=== PATIENT | female | born 1980 | race Caucasian/White ===

== ENCOUNTER 2023-02-08 23:19 | Inpatient (IN) | payer OTHER, SELFPAY ==
--- OUTSIDE RECORDS SUMMARY | 2023-02-08 23:23 | XMS_ITS | Continuity of Care Document ---
Author Name Unknown Address [address] [place] [address] Phone [facility] Address [address] [place] [address] Phone Care Team Providers Care Financial Sales Consultant Name Role Phone Pcp-None, MD Garrido Primary Care Provider Sharan Hood NP [place] Attending Provider [phone] Chief Complaint and Reason for Visit Chief Complaint I25.10, F32.9 Social History Smoking Status Unknown if ever smoked Additional Data Assigned Sex Female Relevant Diagnostic Tests and/or Laboratory Data Laboratory Results Test Date/Time Result Interpretation Reference Range Result Comment Performing Site White Blood Count December 09, 2022 12:30pm 6.4 X10 3/uL 4.5-11.0 [facility] [id number] [address] [place] [address] [id number] Red Blood Count December 09, 2022 12:30pm 4.04 X10 6/uL 3.70-5.00 [facility] [id number] [address] [place] [address] 18619 Hemoglobin December 09, 2022 12:30pm 11.5 g/dl 11.0-16.0 [facility] [id number] [address] [place] [address] 66970 Hematocrit December 09, 2022 12:30pm 36.7 % 34.0-45.0 [facility] [id number] [address] [place] [address] 90040 Mean Corpuscular Volume December 09, 2022 12:30pm 90.8 fl 80.0-100.0 [facility] [id number] [address] [place] [address] 06138 Mean Corpuscular Hemoglobin December 09, 2022 12:30pm 28.5 pg 27.0-34.0 [facility] [id number] [address] [place] [address] 55062 Mean Corpuscular Hemoglobin Concent December 09, 2022 12:30pm 31.3 g/dl 31.0-36.0 [facility] [id number] [address] [place] [address] 03051 Red Cell Distribution Width December 09, 2022 12:30pm 13.2 % 11.5-15.0 [facility] [id number] [address] [place] [address] 38016 Platelet Count December 09, 2022 12:30pm 287 X10 3/uL 150-400 [facility] [id number] [address] [place] [address] 33826 Immature Granulocyte % (Auto) December 09, 2022 12:30pm 0.2 % [facility] [id number] [address] [place] [address] 89776 Neutrophils (%) (Auto) December 09, 2022 12:30pm 60.5 % [facility] [id number] [address] [place] [address] 70161 Lymphocytes (%) (Auto) December 09, 2022 12:30pm 24.2 % [facility] [id number] [address] [place] [address] 52617 Monocytes (%) (Auto) December 09, 2022 12:30pm 12.0 % [facility] [id number] [address] [place] [address] 25377 Eosinophils (%) (Auto) December 09, 2022 12:30pm 2.2 % [facility] [id number] [address] [place] [address] 65932 Basophils (%) (Auto) December 09, 2022 12:30pm 0.9 % [facility] [id number] [address] [place] [address] 84591 Immature Granulocyte # (Auto) December 09, 2022 12:30pm 0.01 X10 3/uL 0.00-0.09 [facility] [id number] [address] [place] [address] 07418 Neutrophils # (Auto) December 09, 2022 12:30pm 3.9 X10 3/uL 1.5-7.8 [facility] [id number] [address] [place] [address] 15875 Lymphocytes # (Auto) December 09, 2022 12:30pm 1.6 X10 3/uL 1.0-4.8 [facility] [id number] [address] [place] [address] 61782 Monocytes # (Auto) December 09, 2022 12:30pm 0.8 X10 3/uL 0.0-0.8 [facility] [id number] [address] [place] [address] 15632 Eosinophils # (Auto) December 09, 2022 12:30pm 0.1 X10 3/uL 0.0-0.5 [facility] [id number] [address] [place] [address] 40077 Basophils # (Auto) December 09, 2022 12:30pm 0.1 X10 3/uL 0.0-0.2 [facility] [id number] [address] [place] [address] 67007 Nucleated Red Blood Cells % December 09, 2022 12:30pm 0.0 /100 WBC 0.0-0.0 [facility] [id number] [address] [place] [address] 52343 Triglycerides Level December 09, 2022 12:30pm 89 mg/dL <150 <=150 mg/dL = Desirable [facility] [id number] [address] [place] [address] Cholesterol Level December 09, 2022 12:30pm 135 mg/dl <199 <200 mg/dL = Desirable [facility] [id number] [address] [place] [address] LDL Cholesterol, Calculated December 09, 2022 12:30pm 70 mg/dl <129 [facility] [id number] [address] [place] [address] HDL Cholesterol December 09, 2022 12:30pm 47 mg/dL >40 < 40 mg/dl: Low HDL-cholest nikolay(major risk factor for CHD)>/= 60 mg/dl: High HDL-cholest nikolay(negati ve risk factor for CHD)HDL-cho lesterol is affected by a number of factors, e.g., smoking, excercise, hormones, sex and age. [facility] [id number] [address] [place] [address] 87430 Cholesterol Ratio (LDL/HDL) December 09, 2022 12:30pm 1.5 LDL/HDL Interpretat ion:Ratio Men Women1/2 Average 1.00 1.47Average 3.55 3.222X Average 6.25 5.033X Average 7.99 6.14 [facility] [id number] [address] [place] [address] 74823 Cholesterol/HDL Ratio December 09, 2022 12:30pm 2.9 Cholesterol /HDL Interpretat ion: Ratio Men Women 1/2 Average 3.43 3.27 Average 4.97 4.44 2X Average 9.55 7.05 3X Average 23.39 11.04 [facility] [id number] [address] [place] [address] 55570 Thyroid Stimulating Hormone (Reflex December 09, 2022 12:30pm 1.95 uIU/mL 0.34-5.60 [facility] [id number] [address] [place] [address] 33318 Insurance Providers Guarantor Lindsay Wheatley Address [address] [place] [address] Contact Info. Home Phone: Payer Policy Id Coverage Id Subscriber's Name Subscriber Id Effective Date Expiration Date [facility] [id number] Lindsay Wheatley [id number] Encounters Encounter Location(s) Arrival/Admit Date Discharge/Depart Date Provider(s) Departed Referred [facility] - After Hours Blood Draws December 09, 2022 12:25pm December 09, 2022 12:26pm Livia Hood NP
--- NOTE | 2023-02-09 03:25 | PC.ADMIT ---
PT IS A 42 YEAR OLD, BELARUSIAN SPEAKING FEMALE ADMITTED TO [facility] FROM [facility] AFTER STATING THAT SHE FELT LIKE JUMPING OFF A BRIDGE AND ENDING IT . PT WAS ORDERED 5 MIN CHECKS WITH AN UNLOCKED BATHROOM PER SUPERVISOR PAINT ROLLER COVERS MD. PSYCH GROUP. VITAL SIGNS STABLE. LABS WNL. PT REPORTS BEING HOMELESS AND SLEEPING ON HER BOYFRIEND'S BROTHERS COUCH FOR THE PAST COUPLE WEEKS. PT REPORTS RECENT WEIGHT LOSS OF AN UNKNOWN AMOUNT DUE TO DECREASED APPETITE. PT HAS HAD DIFFICULTY SLEEPING. PT REPORTS NOT BEING A SMOKER AND DOES NOT NEED NICOTINE REPLACEMENT. NO REPORTED DRUG USE OR ALCOHOL USE. TOX SCREEN NEGATIVE EXCEPT FOR PRESCRIBED MEDICATIONS. NO SIGNS OF WITHDRAWAL. PT TAKES OPIATES FOR CHRONIC BACK PAIN. PT IS ALERT AND ORIENTEDX4. PRESENTS WITH GOOD INSIGHT AND SEEMS HOPEFUL FOR TREATMENT UPON ASSESSMENT. PT MADE GOOD EYE CONTACT AND WAS COOPERATIVE WITH RN. PT REQUESTED TO SIGN RELEASES AND DO SAFETY TOOL IN THE MORNING DUE TO BEING TOO TIRED FROM NIGHT TIME MEDICATIONS . PT AMBULATES INDEPENDENTLY; NO HX OF FALLS. NO ACUTE MEDICAL CONCERNS. PT DOES REPORT SLEEP APNEA BUT DOES NOT USE A CPAP AT HOME BECAUSE SHE NEVER WENT FOR THE SLEEP STUDY . PTS HOB IS ELEVATED. PT HAS VAGUE SI CURRENTLY WITH NO PLAN OR INTENT. PT FEELS SAFE ON THE UNIT BUT DOES NOT FEEL SHE COULD BE SAFE OUTSIDE OF THE HOSPITAL AT THIS TIME. PT REFUSED A FLU VACCINE. PT DENIES HI/AH/VH. DOES NOT APPEAR TO BE RESPONDING TO INTERNAL STIMULI. PTS ALLERGIES HAVE BEEN VERIFIED AND MED REC HAS BEEN COMPLETED BY RN. HOSPITALIST CONSULT ORDERED FOR OUTSIDE FACILITY ADMISSION. PT REPORTS MODERATE ANXIETY AND DEPRESSION.
[2023-02-09 07:00] VITALS: BMI 28.2
[2023-02-09 08:30] VITALS: BP 120/66; PULSE 70; RESP 18; TEMP 36.6; O2SAT 96
[2023-02-09] MEDS: Omeprazole 20 MG CAPSULE.DR PO ×2 (08:42→20:38)
[2023-02-09] MEDS: diazePAM 5 MG TABLET 10 MG PO ×2 (13:03→19:25)
[2023-02-09] MEDS: Acetaminophen 325 MG TABLET 650 MG PO (14:33)
[2023-02-09 16:24] VITALS: BP 93/52; PULSE 70; RESP 16; TEMP 37.1; O2SAT 97
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
--- NOTE | 2023-02-09 19:04 | HO.PM.IMCN ---
History of Present Illness Data of Consult Service Date: 02/09/23 Primary Care Provider: Unknown Physician HPI Reason for consult: Admission H&P Pt is a 42-year-old female with a PMH significant for?mild intermittent asthma, GERD, scoliosis, chronic back pain, depression, and bipolar disorder who is admitted to [facility] psychiatry unit for increasing depression since boyfriend has been incarcerated with SI with plan to jump from a local bridge. Medical consult for admission H&P. ?Patient states her asthma is well controlled with Ellipta, says she rarely uses her rescue inhaler. Patient's only medical complaint is of chronic lower back pain that she has been experiencing since earlier in the summer. Patient has been homeless since October 2022 and been sleeping on the back of a [employer]. Patient has scoliosis and has been experiencing significant back pain ever since. She carries a prescription from her primary care for chronic opioids for pain control. She has only been receiving acetaminophen while on the unit and still experiencing significant pain which she rates an 8/10. She request her home opioids be continued possible. The patient was has no acute medical complaints. Denies chest pain/pressure, palpitations. No shortness of breath. Denies fever, chills, nausea, vomiting, diarrhea. Labs reviewed, grossly unremarkable. Vital signs stable. UA from [facility] negative for UTI Review of Systems Review of Systems: Chronic lower back pain Patient was has no acute medical complaints [facility] Medical History PTSD (post-traumatic stress disorder) Bipolar depression Social History Household Members: None Household Members Other:: HOMELESS, SLEEPING ON BFS BROTHERS COUCH Housing: Homeless Housing Other:: SEARCHING FOR HOUSING Do you presently have visiting nurse or other home services: No Patient Tobacco Use Status: Never used Tobacco Smoked in Last 30 Days: No e-Cigarette/Vaping Use: Never Used Patient Interested in Nicotine Replacement: No Patient Given Instructions on How to Stop Smoking: No Second Hand Smoke Exposure: No Use of substances other than those prescribed or required for medical reasons: No Currently Displaying Signs/Symptoms of Drug Intoxication Withdrawal: No Any prior treatment program specific to substance use: No Have you been hit, kicked, punched, or otherwise hurt by someone within the past year? If so, by whom?: No Do you feel safe in your current relationship?: Yes Is there a partner from a previous relationship who is making you feel unsafe now?: No Are you made to feel afraid or neglected: No Advance Directives: No Advance Directives Information Provided: Yes Do you have thoughts of harming others: None Do you have a plan to hurt others: No Plan Recently lost weight without trying: Yes How much weight loss: 2-13 pounds Eating poorly because of decreased appetite: Yes Nutrition screen score: 4 Nutrition Risks: No Nutritional Risk Patient : No : No Poor oral hygiene: No Meds Allergies Allergy/AdvReac Type Severity Reaction Status Date / Time chlorpromazine Allergy Intermediate Unknown Verified 02/09/23 00:48 [From Thorazine] citalopram Allergy Intermediate Vomiting Verified 02/09/23 00:48 escitalopram [From Lexapro] Allergy Intermediate Unknown Verified 02/09/23 00:48 fluoxetine [From Prozac] Allergy Intermediate Nausea Verified 02/09/23 00:48 ibuprofen Allergy Intermediate jaw edema Unverified 02/10/23 11:33 lurasidone [From Latuda] Allergy Intermediate Swelling Verified 02/09/23 00:48 olanzapine Allergy Intermediate Unknown Verified 02/09/23 00:48 hydroxyzine [From Vistaril] Allergy Unknown Unknown Verified 02/09/23 00:48 sertraline [From Zoloft] Allergy Unknown Vomiting Verified 02/09/23 00:48 propranolol AdvReac Intermediate Anxiety Verified 02/09/23 00:48 Active Medications: Current Medications Acetaminophen (Acetaminophen 325 Mg Tablet) 650 mg PO Q6H PRN PRN Reason: Headache/Pain Mild Scale (1-3) Last Admin: 02/09/23 14:33 Dose: 650 mg Al Hydroxide/Mg Hydroxide (Magnesium Hydrox/Alum Hydrox 30 Ml Oral.Susp) 30 ml PO Q6H PRN PRN Reason: Heartburn/Nausea Albuterol Sulfate (Albuterol Sulfate 90 Mcg 8 Gm Inhaler) 2 puff INHALE 6XD PRN PRN Reason: Wheezing Bupropion HCl (Bupropion Hcl 75 Mg Tablet) 75 mg PO DAILY ARABELLA Diazepam (Diazepam 5 Mg Tablet) 10 mg PO QID PRN PRN Reason: Anxiety Last Admin: 02/09/23 13:03 Dose: 10 mg Docusate Sodium (Docusate Sodium 100 Mg Capsule) 100 mg PO BID PRN PRN Reason: Constipation Famotidine (Famotidine 20 Mg Tablet) 20 mg PO BID PRN PRN Reason: Gastric Reflux Magnesium Hydroxide (Milk Of Magnesia 30 Ml Oral.Susp) 30 ml PO DAILY PRN PRN Reason: Constipation Omeprazole (Omeprazole 20 Mg Capsule.Dr) 20 mg PO BID [facility] Last Admin: 02/09/23 08:42 Dose: 20 mg Senna (Sennosides 8.6 Mg Tablet) 8.6 mg PO DAILY PRN PRN Reason: Constipation Tiotropium Alpine (Tiotropium Alpine 2.5 Mcg Inhaler) 2 puff INHALE DAILY [facility] Last Admin: 02/09/23 10:23 Dose: 2 puff Home Medications Medication Instructions Recorded Confirmed Last Taken Type albuterol sulfate 90 mcg/actuation 2 puff inhalation 6XD PRN Wheezing 02/09/23 02/09/23 Unknown History aerosol inhaler diazepam 10 mg tablet 10 mg PO QID PRN Anxiety 02/09/23 02/09/23 Unknown History docusate sodium 100 mg capsule 100 mg PO BID PRN Constipation 02/09/23 02/09/23 Unknown History famotidine 20 mg tablet 20 mg PO BID PRN Gastric Reflux 02/09/23 02/09/23 Unknown History hydrocodone 7.5 mg-acetaminophen 1 tab PO BID PRN Pain 02/09/23 02/09/23 Unknown History 325 mg tablet morphine 30 mg tablet,extended 30 mg PO Q12H 02/09/23 02/09/23 Unknown History release omeprazole 20 mg tablet,delayed 20 mg PO BID 02/09/23 02/09/23 Unknown History release sennosides 8.6 mg tablet (senna) 8.6 mg PO DAILY PRN Constipation 02/09/23 02/09/23 Unknown History umeclidinium 62.5 mcg/actuation 1 inh inhalation DAILY 02/09/23 02/09/23 Unknown History blister powder for inhalation (Incruse Ellipta) Physical Exam Vital Signs and Narrative: Vital Signs: Last Vital Signs Temp 98.7 F 02/09/23 16:24 Pulse 70 02/09/23 16:24 Resp 16 02/09/23 16:24 BP 93/52 L 02/09/23 16:24 Pulse Ox 97 02/09/23 16:24 O2 Del Method Room Air 02/09/23 16:24 BMI result Body Mass Index 28.2 General: AOx3, no acute distress Resp: CTA bilaterally CVS: S1, S2, RRR GI: +BS, NT, no distention Back: Patient with scoliosis. Diffuse tenderness to low back, especially on left side. Skin: Warm, dry Neuro: Cranial nerves II-XII grossly intact bilaterally. Motor grossly intact bilaterally Extremities: No edema Psych: Appropriate affect Results Labs 02/10/23 07:53 Assessment and Plan (1) Routine history and physical examination of adult: Status: Acute Plan Pt is a 42-year-old female with a PMH significant for?mild intermittent asthma, GERD, scoliosis, chronic back pain, depression, and bipolar disorder who is admitted to [facility] psychiatry unit for increasing depression since boyfriend has been incarcerated with SI with plan to jump from a local bridge. Medical consult for admission H&P. Mood disorder Plan as per Psychiatry Chronic lower back pain Patient with scoliosis, states she has been experiencing lower back pain since earlier this summer after living in the back of a [employer] Has been prescribed Vicodin, morphine by PCP which she has not yet receiving on the unit Can continue patient's home opioids for pain management Mild intermittent asthma Well-controlled with current regimen Patient not in acute exacerbation Continue home inhalers GERD Continue PPI Thank you for allowing us to participate in the care of this patient. Signing off at this time. Please let us know if there are any acute complaints or questions. Time Spent With Patient Time: Total time managing care of this patient today ____ minutes.
--- NOTE | 2023-02-09 19:40 | PC.NURSE ---
Pt submitted a Three Day Notice on 02/09/2023 up on Monday02/14/2023.
--- NOTE | 2023-02-10 | ECG_ITS ---
Test Reason : qtc check Blood Pressure : / mmHG Vent. Rate : 075 BPM Atrial Rate : 075 BPM P-R Int : 168 ms QRS Dur : 072 ms QT Int : 364 ms P-R-T Axes : 036 136 033 degrees QTc Int : 406 ms Normal sinus rhythm Right axis deviation Abnormal ECG No previous ECGs available Referred By: Adelita Pool Electronically Signed By:TREVOR GERARDO
[2023-02-10] MEDS: diazePAM 5 MG TABLET 10 MG PO ×4 (04:26→20:01)
[2023-02-10] MEDS: Acetaminophen 325 MG TABLET 650 MG PO ×3 (04:26→20:02)
[2023-02-10 08:23] LABS: Estimated Average Glucose 97 mg/dL
[2023-02-10 08:39] LABS: Alanine Aminotransferase 12 U/L (0-31); Albumin Level 3.8 g/dL (3.5-5.0); Alkaline Phosphatase 55 U/L (39-117); Anion Gap 11 (12-20); Aspartate Amino Transferase 13 U/L (5-31); Bilirubin Total 0.3 mg/dL (0.0-1.0); Blood Urea Nitrogen 10 mg/dL (9-16); Calcium 9.8 mg/dL (8.4-10.2); Carbon Dioxide 27 mmol/L (22-29); Chloride 108 mmol/L (96-108); Cholesterol 134 mg/dL (<200); Creatinine Clr Calc Pharmacy 82.5; Estimated Glomerular Filt Rate > 60; Glucose Fasting 93 mg/dL (60-99); HDL Cholesterol 32 mg/dL (>40); Iron 39 mcg/dL (30-160); LDL Cholesterol Calculated 77 mg/dL (<100); Percent Iron Saturation 17 % (15-50); Potassium 4.1 mmol/L (3.3-5.1); Sodium 142 mmol/L (135-145); Total Iron Binding Capacity 234 mcg/dL (228-428); Total Protein 6.9 g/dL (6.5-8.0); Triglycerides 126 mg/dL (<150); Unsaturated Iron Binding 195 ug/dL
[2023-02-10 08:40] VITALS: BP 111/56; PULSE 72; RESP 18; TEMP 36.5; O2SAT 98
[2023-02-10] MEDS: Omeprazole 20 MG CAPSULE.DR PO ×2 (08:46→20:01)
[2023-02-10 09:07] LABS: Folate 6.5 ng/mL (> or = 4.0); Vitamin B12 508 pg/mL (200-900)
[2023-02-10] MEDS: oxyCODONE HCl Immed Release 5 MG TABLET PO ×2 (12:57→20:01)
--- NOTE | 2023-02-10 16:09 | MHC.CLN ---
NUTRITION DISCONTINUED ENSURE TID. RD AVAILABLE BY CONSULT NEEDED.
[2023-02-10 18:00] VITALS: BP 106/59; PULSE 90; RESP 17; TEMP 36.6; O2SAT 98
--- NOTE | 2023-02-10 19:21 | HO.PSYCHPN ---
Subjective Subjective Date of Service: 02/10/23 Reason For Visit: major depressive disorder Subjective Notes: Conditional Voluntary and 3 Day Healthcare Proxy: No Guardianship: No Medical Problems Affecting Mental Status: No Interim History: Reports feeling in pain, overwhelmed, so she signed a TDN Refused Wellbutrin-we discontinued this. Discussed having a hard time without her partner or being able to connect with him. Reviewed pain mgt with her pharmacy, discussed Remeron trial for sleep. Medication Compliance: Intermittent Side effects from medications: No Attending Groups: Intermittent Review of Systems Acute medical concerns: No Medical Review of Systems: unchanged Mental Status Exam Mental Status Exam Patient Appearance: Fatigued Patient Orientation: Person, Place, Time and Situation Level of Consciousness: Alert Patient Behavior: Talkative, Cooperative and Good Eye Contact Mood Description: Suspicious and Depressed Affect Description: Flat Patient Cognition Impaired: No Ability to Follow Directions: Good Speech Pattern: Spontaneous Speech Memory Description: Intact Hallucinations: None Delusions: Not Present Perceptual Disturbances: Depersonalization and Derealization Thought Process: Rumination Thought Content: positive for Circumstantial and positive for Suicidal Ideation (denies) Depressive Symptoms: Unhappiness, Thoughts of /Suicide (denies) and Low Self Esteem Judgement: Fair Diagnostics Vital Signs (24Hr): Vital Signs - 24 hr 02/10/23 08:40 Temperature 97.7 F Pulse Rate 72 Respiratory Rate 18 Blood Pressure 111/56 L Pulse Oximetry 98 Oxygen Delivery Method Room Air BMI result Body Mass Index 28.2 Labs 02/10/23 07:53 Labs: Laboratory Results - last 48 hr 02/10/23 07:53 Sodium 142 Potassium 4.1 Chloride 108 Carbon Dioxide 27 Anion Gap 11 L BUN 10 Creatinine 0.83 Estim Creat Clear Calc 82.5 Estimated GFR > 60 Fasting Glucose 93 Estimat Average Glucose 97 Hemoglobin A1c % 5.0 Calcium 9.8 Iron 39 TIBC 234 % Saturation 17 Unsat Iron Binding 195 Total Bilirubin 0.3 AST 13 ALT 12 Alkaline Phosphatase 55 Total Protein 6.9 Albumin 3.8 Triglycerides 126 Cholesterol 134 LDL Cholesterol, Calc 77 HDL Cholesterol 32 L Vitamin B12 508 Folate 6.5 TSH 1.20 Medications Medications Current Medications Acetaminophen (Acetaminophen 325 Mg Tablet) 650 mg PO Q6H PRN PRN Reason: Headache/Pain Mild Scale (1-3) Last Admin: 02/10/23 11:21 Dose: 650 mg Al Hydroxide/Mg Hydroxide (Magnesium Hydrox/Alum Hydrox 30 Ml Oral.Susp) 30 ml PO Q6H PRN PRN Reason: Heartburn/Nausea Albuterol Sulfate (Albuterol Sulfate 90 Mcg 8 Gm Inhaler) 2 puff INHALE 6XD PRN PRN Reason: Wheezing Diazepam (Diazepam 5 Mg Tablet) 10 mg PO QID PRN PRN Reason: Anxiety Last Admin: 02/10/23 17:26 Dose: 10 mg Docusate Sodium (Docusate Sodium 100 Mg Capsule) 100 mg PO BID PRN PRN Reason: Constipation Famotidine (Famotidine 20 Mg Tablet) 20 mg PO BID PRN PRN Reason: Gastric Reflux Magnesium Hydroxide (Milk Of Magnesia 30 Ml Oral.Susp) 30 ml PO DAILY PRN PRN Reason: Constipation Mirtazapine (Mirtazapine 7.5 Mg Tablet) 7.5 mg PO BEDTIME [facility] Omeprazole (Omeprazole 20 Mg Capsule.Dr) 20 mg PO BID [facility] Last Admin: 02/10/23 08:46 Dose: 20 mg Oxycodone HCl (Oxycodone Hcl Immed Release 5 Mg Tablet) 5 mg PO Q8H PRN PRN Reason: back pain Last Admin: 02/10/23 12:57 Dose: 5 mg Senna (Sennosides 8.6 Mg Tablet) 8.6 mg PO DAILY PRN PRN Reason: Constipation Tiotropium [place] (Tiotropium [place] 2.5 Mcg Inhaler) 2 puff INHALE DAILY [facility] Last Admin: 02/10/23 08:48 Dose: 2 puff Allergies Allergies Allergy/AdvReac Type Severity Reaction Status Date / Time chlorpromazine Allergy Intermediate Unknown Verified 02/09/23 00:48 [From Thorazine] citalopram Allergy Intermediate Vomiting Verified 02/09/23 00:48 escitalopram [From Lexapro] Allergy Intermediate Unknown Verified 02/09/23 00:48 fluoxetine [From Prozac] Allergy Intermediate Nausea Verified 02/09/23 00:48 ibuprofen Allergy Intermediate jaw edema Unverified 02/10/23 11:33 lurasidone [From Latuda] Allergy Intermediate Swelling Verified 02/09/23 00:48 olanzapine Allergy Intermediate Unknown Verified 02/09/23 00:48 hydroxyzine [From Vistaril] Allergy Unknown Unknown Verified 02/09/23 00:48 sertraline [From Zoloft] Allergy Unknown Vomiting Verified 02/09/23 00:48 propranolol AdvReac Intermediate Anxiety Verified 02/09/23 00:48 duloxetine [From Cymbalta] AdvReac Unknown Unknown Verified 02/10/23 12:38 Assessment & Plan Assessment & Plan (1) PTSD (post-traumatic stress disorder): Status: Acute Code(s): F43.10 - Post-traumatic stress disorder, unspecified Assessment and Plan: 02/10/23 Remeron 7.5 mg hs Oxycodone 5 mg q8h prn pain (uses at home) (2) Bipolar depression: Status: Acute Code(s): F31.9 - Bipolar disorder, unspecified Plan Pt is a 42-year-old female with a PMH significant for?mild intermittent asthma, GERD, scoliosis, chronic back pain, depression, and bipolar disorder who is admitted to [facility] unit for increasing depression since boyfriend has been incarcerated with [facility] with plan to jump from a local bridge. Medical consult for admission H&P. Mood disorder Plan as per Psychiatry Chronic lower back pain Patient with scoliosis, states she has been experiencing lower back pain since earlier this summer after living in the back of a [employer] Has been prescribed Vicodin, morphine by PCP which she has not yet receiving on the unit Can continue patient's home opioids for pain management Mild intermittent asthma Well-controlled with current regimen Patient not in acute exacerbation Continue home inhalers GERD Continue PPI Thank you for allowing us to participate in the care of this patient. Signing off at this time. Please let us know if there are any acute complaints or questions. Patient educated on: medication risk/benefits and therapeutic strategies Informed Consent: understands Reason for continued inpatient stay Substantial Risk for: rapid decompensation Time Spent With Patient Time: Total time managing care of this patient today ____ minutes.
[2023-02-10] MEDS: Mirtazapine 7.5 MG TABLET PO (20:01)
[2023-02-11 08:10] VITALS: BP 117/62; PULSE 70; RESP 18; TEMP 36.4; O2SAT 98
[2023-02-11] MEDS: Omeprazole 20 MG CAPSULE.DR PO (08:47)
--- NOTE | 2023-02-11 08:47 | P.PNPSI_ITS ---
Subjective Subjective Date of Service: 02/11/23 Reason For Visit: major depressive disorder Subjective Notes: Conditional Voluntary Healthcare Proxy: No Guardianship: No Medical Problems Affecting Mental Status: No Interim History: Reports Remeron 7.5 mg was too strong last evening, will decrease to 3.75 mg HS tonight. Resting in bed today, reports dysphoria over her situation. Discussed options/resources for post discharge follow up. Medication Compliance: Yes Side effects from medications: Yes (sedation) Attending Groups: Intermittent Review of Systems Acute medical concerns: No Medical Review of Systems: unchanged Mental Status Exam Mental Status Exam Patient Appearance: Fatigued Patient Orientation: Person, Place, Time and Situation Level of Consciousness: Alert Patient Behavior: Talkative, Cooperative and Good Eye Contact Mood Description: Suspicious and Depressed Affect Description: Depressed and Flat Patient Cognition Impaired: No Ability to Follow Directions: Fair Speech Pattern: Spontaneous Speech Memory Description: Intact Hallucinations: None Delusions: Not Present Perceptual Disturbances: Depersonalization and Derealization Thought Process: Rumination Thought Content: positive for Circumstantial, positive for Perseveration and positive for Suicidal Ideation (denies) Depressive Symptoms: Sleeping More Than Usual, Feelings of Worthlessness, Hopelessness, Isolating-Friends/Family, Unhappiness, Thoughts of /Suicide (denies) and Low Self Esteem Judgement: Fair Diagnostics Vital Signs (24Hr): Vital Signs - 24 hr 02/10/23 18:00 Temperature 97.8 F Pulse Rate 90 Respiratory Rate 17 Blood Pressure 106/59 L Pulse Oximetry 98 Oxygen Delivery Method Room Air BMI result Body Mass Index 28.2 Labs 02/10/23 07:53 Labs: Laboratory Results - last 48 hr 02/10/23 07:53 Sodium 142 Potassium 4.1 Chloride 108 Carbon Dioxide 27 Anion Gap 11 L BUN 10 Creatinine 0.83 Estim Creat Clear Calc 82.5 Estimated GFR > 60 Fasting Glucose 93 Estimat Average Glucose 97 Hemoglobin A1c % 5.0 Calcium 9.8 Iron 39 TIBC 234 % Saturation 17 Unsat Iron Binding 195 Total Bilirubin 0.3 AST 13 ALT 12 Alkaline Phosphatase 55 Total Protein 6.9 Albumin 3.8 Triglycerides 126 Cholesterol 134 LDL Cholesterol, Calc 77 HDL Cholesterol 32 L Vitamin B12 508 Folate 6.5 TSH 1.20 Medications Medications Current Medications Acetaminophen (Acetaminophen 325 Mg Tablet) 650 mg PO Q6H PRN PRN Reason: Headache/Pain Mild Scale (1-3) Last Admin: 02/10/23 20:02 Dose: 650 mg Al Hydroxide/Mg Hydroxide (Magnesium Hydrox/Alum Hydrox 30 Ml Oral.Susp) 30 ml PO Q6H PRN PRN Reason: Heartburn/Nausea Albuterol Sulfate (Albuterol Sulfate 90 Mcg 8 Gm Inhaler) 2 puff INHALE 6XD PRN PRN Reason: Wheezing Diazepam (Diazepam 5 Mg Tablet) 10 mg PO QID PRN PRN Reason: Anxiety Last Admin: 02/10/23 20:01 Dose: 10 mg Docusate Sodium (Docusate Sodium 100 Mg Capsule) 100 mg PO BID PRN PRN Reason: Constipation Famotidine (Famotidine 20 Mg Tablet) 20 mg PO BID PRN PRN Reason: Gastric Reflux Magnesium Hydroxide (Milk Of Magnesia 30 Ml Oral.Susp) 30 ml PO DAILY PRN PRN Reason: Constipation Mirtazapine (Mirtazapine 7.5 Mg Tablet) 7.5 mg PO BEDTIME [facility] Last Admin: 02/10/23 20:01 Dose: 7.5 mg Omeprazole (Omeprazole 20 Mg Capsule.Dr) 20 mg PO BID [facility] Last Admin: 02/10/23 20:01 Dose: 20 mg Oxycodone HCl (Oxycodone Hcl Immed Release 5 Mg Tablet) 5 mg PO Q8H PRN PRN Reason: back pain Last Admin: 02/10/23 20:01 Dose: 5 mg Senna (Sennosides 8.6 Mg Tablet) 8.6 mg PO DAILY PRN PRN Reason: Constipation Tiotropium [place] (Tiotropium [place] 2.5 Mcg Inhaler) 2 puff INHALE DAILY [facility] Last Admin: 02/10/23 08:48 Dose: 2 puff Allergies Allergies Allergy/AdvReac Type Severity Reaction Status Date / Time chlorpromazine Allergy Intermediate Unknown Verified 02/09/23 00:48 [From Thorazine] citalopram Allergy Intermediate Vomiting Verified 02/09/23 00:48 escitalopram [From Lexapro] Allergy Intermediate Unknown Verified 02/09/23 00:48 fluoxetine [From Prozac] Allergy Intermediate Nausea Verified 02/09/23 00:48 ibuprofen Allergy Intermediate jaw edema Unverified 02/10/23 11:33 lurasidone [From Latuda] Allergy Intermediate Swelling Verified 02/09/23 00:48 olanzapine Allergy Intermediate Unknown Verified 02/09/23 00:48 hydroxyzine [From Vistaril] Allergy Unknown Unknown Verified 02/09/23 00:48 sertraline [From Zoloft] Allergy Unknown Vomiting Verified 02/09/23 00:48 propranolol AdvReac Intermediate Anxiety Verified 02/09/23 00:48 duloxetine [From Cymbalta] AdvReac Unknown Unknown Verified 02/10/23 12:38 Assessment & Plan Assessment & Plan (1) PTSD (post-traumatic stress disorder): Status: Acute Code(s): F43.10 - Post-traumatic stress disorder, unspecified Assessment and Plan: 02/11/23- Decrease Remeron to 3.75 mg HS. (2) Bipolar depression: Status: Acute Code(s): F31.9 - Bipolar disorder, unspecified Plan Pt is a 42-year-old female with a PMH significant for?mild intermittent asthma, GERD, scoliosis, chronic back pain, depression, and bipolar disorder who is admitted to [facility] unit for increasing depression since boyfriend has been incarcerated with [facility] with plan to jump from a local bridge. Medical consult for admission H&P. Mood disorder Plan as per Psychiatry Chronic lower back pain Patient with scoliosis, states she has been experiencing lower back pain since earlier this summer after living in the back of a [employer] Has been prescribed Vicodin, morphine by PCP which she has not yet receiving on the unit Can continue patient's home opioids for pain management Mild intermittent asthma Well-controlled with current regimen Patient not in acute exacerbation Continue home inhalers GERD Continue PPI Thank you for allowing us to participate in the care of this patient. Signing off at this time. Please let us know if there are any acute complaints or questions. Patient educated on: medication risk/benefits and therapeutic strategies Informed Consent: understands Reason for continued inpatient stay Substantial Risk for: rapid decompensation Time Spent With Patient Time: Total time managing care of this patient today ____ minutes.
[2023-02-11] MEDS: oxyCODONE HCl Immed Release 5 MG TABLET PO ×2 (09:28→17:51)
[2023-02-11] MEDS: Acetaminophen 325 MG TABLET 650 MG PO ×2 (09:28→17:52)
[2023-02-11] MEDS: diazePAM 5 MG TABLET 10 MG PO (10:24)
[2023-02-11 18:00] VITALS: BP 128/68; PULSE 79; RESP 16; TEMP 36.6; O2SAT 98
--- NOTE | 2023-02-11 21:37 | PC.NURSE ---
Pt refused bedtime medications, Mirtazapine and omeprazole. Medication fell in a cup of water after it was popped. This typewriter assembly and parts inspector offered to get another medication for Pt but pt refused and said, I am going to make a complaint in the morning . Charge nurse Sharon notified of the incident.
[2023-02-12] MEDS: diazePAM 5 MG TABLET 10 MG PO ×3 (00:24→18:33)
[2023-02-12] MEDS: Acetaminophen 325 MG TABLET 650 MG PO ×2 (00:24→14:32)
[2023-02-12] MEDS: oxyCODONE HCl Immed Release 5 MG TABLET PO ×2 (03:13→14:33)
--- NOTE | 2023-02-12 03:16 | PC.NURSE ---
Patient was up several time tonight, cannot sleep. Patient looks unkempt/greasy hair. Patient reports withdrawing from morphine. She states she would rather be on the streets and is upset that she is here and they are not helping her. She states she has a prescription for morphine and doesnt know why she cant get it. She states she has high anxiety, has the sweats, body aches, and cant sleep and its not fun .
[2023-02-12 03:23] LABS: Follicle Stimulating Hormone 9.2 mIU/mL
--- NOTE | 2023-02-12 05:51 | HO.PSYCHPN ---
Subjective Subjective Date of Service: 02/12/23 Reason For Visit: major depressive disorder Subjective Notes: Conditional Voluntary and 3 Day Healthcare Proxy: No Guardianship: No Medical Problems Affecting Mental Status: No Interim History: TDN in effect. Pt with minimal interest in treatment. She is able to engage in discussion, however, her priority at this time is to receive her pain meds and assistance with housing. Conflicts with team are ongoing. She is focused on utilization of the hospital for housing Discharge planned 02/14. Medication Compliance: Yes Side effects from medications: No Attending Groups: No Review of Systems Acute medical concerns: No Medical Review of Systems: unchanged Mental Status Exam Mental Status Exam Patient Appearance: Fatigued Patient Orientation: Person, Place, Time and Situation Level of Consciousness: Alert Patient Behavior: Talkative, Cooperative and Good Eye Contact Mood Description: Suspicious and Depressed Affect Description: Depressed and Flat Patient Cognition Impaired: No Ability to Follow Directions: Fair Speech Pattern: Spontaneous Speech Memory Description: Intact Hallucinations: None Delusions: Not Present Perceptual Disturbances: Depersonalization and Derealization Thought Process: Rumination Thought Content: positive for Circumstantial, positive for Perseveration and positive for Suicidal Ideation (denies) Depressive Symptoms: Sleeping More Than Usual, Feelings of Worthlessness, Hopelessness, Isolating-Friends/Family, Unhappiness, Thoughts of /Suicide (denies) and Low Self Esteem Judgement: Fair Diagnostics Vital Signs (24Hr): Vital Signs - 24 hr 02/11/23 08:10 02/11/23 18:00 Temperature 97.5 F 97.8 F Pulse Rate 70 79 Respiratory Rate 18 16 Blood Pressure 117/62 128/68 Pulse Oximetry 98 98 Oxygen Delivery Method Room Air Room Air BMI result Body Mass Index 28.2 Labs 02/10/23 07:53 Labs: Laboratory Results - last 48 hr 02/10/23 02/10/23 07:53 13:26 Sodium 142 Potassium 4.1 Chloride 108 Carbon Dioxide 27 Anion Gap 11 L BUN 10 Creatinine 0.83 Estim Creat Clear Calc 82.5 Estimated GFR > 60 Fasting Glucose 93 Estimat Average Glucose 97 Hemoglobin A1c % 5.0 Calcium 9.8 Iron 39 TIBC 234 % Saturation 17 Unsat Iron Binding 195 Total Bilirubin 0.3 AST 13 ALT 12 Alkaline Phosphatase 55 Total Protein 6.9 Albumin 3.8 Triglycerides 126 Cholesterol 134 LDL Cholesterol, Calc 77 HDL Cholesterol 32 L Vitamin B12 508 Folate 6.5 TSH 1.20 FSH 9.2 Medications Medications Current Medications Acetaminophen (Acetaminophen 325 Mg Tablet) 650 mg PO Q6H PRN PRN Reason: Headache/Pain Mild Scale (1-3) Last Admin: 02/12/23 00:24 Dose: 650 mg Al Hydroxide/Mg Hydroxide (Magnesium Hydrox/Alum Hydrox 30 Ml Oral.Susp) 30 ml PO Q6H PRN PRN Reason: Heartburn/Nausea Albuterol Sulfate (Albuterol Sulfate 90 Mcg 8 Gm Inhaler) 2 puff INHALE 6XD PRN PRN Reason: Wheezing Diazepam (Diazepam 5 Mg Tablet) 10 mg PO QID PRN PRN Reason: Anxiety Last Admin: 02/12/23 00:24 Dose: 10 mg Docusate Sodium (Docusate Sodium 100 Mg Capsule) 100 mg PO BID PRN PRN Reason: Constipation Famotidine (Famotidine 20 Mg Tablet) 20 mg PO BID PRN PRN Reason: Gastric Reflux Magnesium Hydroxide (Milk Of Magnesia 30 Ml Oral.Susp) 30 ml PO DAILY PRN PRN Reason: Constipation Mirtazapine (Mirtazapine 7.5 Mg Tablet) 3.75 mg PO BEDTIME [facility] Last Admin: 02/11/23 22:08 Dose: Not Given Omeprazole (Omeprazole 20 Mg Capsule.Dr) 20 mg PO BID [facility] Last Admin: 02/11/23 22:08 Dose: Not Given Oxycodone HCl (Oxycodone Hcl Immed Release 5 Mg Tablet) 5 mg PO Q8H PRN PRN Reason: back pain Last Admin: 02/12/23 03:13 Dose: 5 mg Senna (Sennosides 8.6 Mg Tablet) 8.6 mg PO DAILY PRN PRN Reason: Constipation Tiotropium [place] (Tiotropium [place] 2.5 Mcg Inhaler) 2 puff INHALE DAILY [facility] Last Admin: 02/11/23 08:47 Dose: 2 puff Allergies Allergies Allergy/AdvReac Type Severity Reaction Status Date / Time chlorpromazine Allergy Intermediate Unknown Verified 02/09/23 00:48 [From Thorazine] citalopram Allergy Intermediate Vomiting Verified 02/09/23 00:48 escitalopram [From Lexapro] Allergy Intermediate Unknown Verified 02/09/23 00:48 fluoxetine [From Prozac] Allergy Intermediate Nausea Verified 02/09/23 00:48 ibuprofen Allergy Intermediate jaw edema Unverified 02/10/23 11:33 lurasidone [From Latuda] Allergy Intermediate Swelling Verified 02/09/23 00:48 olanzapine Allergy Intermediate Unknown Verified 02/09/23 00:48 hydroxyzine [From Vistaril] Allergy Unknown Unknown Verified 02/09/23 00:48 sertraline [From Zoloft] Allergy Unknown Vomiting Verified 02/09/23 00:48 propranolol AdvReac Intermediate Anxiety Verified 02/09/23 00:48 duloxetine [From Cymbalta] AdvReac Unknown Unknown Verified 02/10/23 12:38 Assessment & Plan Assessment & Plan (1) PTSD (post-traumatic stress disorder): Status: Acute Code(s): F43.10 - Post-traumatic stress disorder, unspecified Assessment and Plan: 02/11/23- Decrease Remeron to 3.75 mg HS. 02/12/23- Discharge planned for 02/14. Pt without interest in treatment. (2) Bipolar depression: Status: Acute Code(s): F31.9 - Bipolar disorder, unspecified Plan Pt is a 42-year-old female with a PMH significant for?mild intermittent asthma, GERD, scoliosis, chronic back pain, depression, and bipolar disorder who is admitted to [facility] unit for increasing depression since boyfriend has been incarcerated with SI with plan to jump from a local bridge. Medical consult for admission H&P. Mood disorder Plan as per Psychiatry Chronic lower back pain Patient with scoliosis, states she has been experiencing lower back pain since earlier this summer after living in the back of a [employer] Has been prescribed Vicodin, morphine by PCP which she has not yet receiving on the unit Can continue patient's home opioids for pain management Mild intermittent asthma Well-controlled with current regimen Patient not in acute exacerbation Continue home inhalers GERD Continue PPI Thank you for allowing us to participate in the care of this patient. Signing off at this time. Please let us know if there are any acute complaints or questions. Patient educated on: medication risk/benefits and therapeutic strategies Informed Consent: understands Reason for continued inpatient stay Substantial Risk for: rapid decompensation Time Spent With Patient Time: Total time managing care of this patient today ____ minutes.
[2023-02-12 08:50] VITALS: BP 108/55; PULSE 89; RESP 18; TEMP 36.7; O2SAT 98
[2023-02-12] MEDS: Omeprazole 20 MG CAPSULE.DR PO ×2 (08:55→19:59)
[2023-02-12] MEDS: Morphine Sulfate ER 30 MG TABLET.ER PO ×2 (10:14→21:11)
[2023-02-12 16:59] VITALS: BP 97/57; PULSE 76; TEMP 36.1; O2SAT 98
[2023-02-12] MEDS: Mirtazapine 7.5 MG TABLET 3.75 MG PO (19:59)
[2023-02-13] MEDS: Acetaminophen 325 MG TABLET 650 MG PO ×2 (01:17→11:44)
[2023-02-13] MEDS: oxyCODONE HCl Immed Release 5 MG TABLET PO ×2 (01:18→11:44)
[2023-02-13 09:02] VITALS: BP 105/56; PULSE 60; RESP 16; TEMP 36.9; O2SAT 99
[2023-02-13] MEDS: Morphine Sulfate ER 30 MG TABLET.ER PO ×2 (09:07→21:12)
[2023-02-13] MEDS: Omeprazole 20 MG CAPSULE.DR PO ×2 (09:07→20:21)
[2023-02-13] MEDS: diazePAM 5 MG TABLET 10 MG PO ×2 (10:17→18:58)
--- NOTE | 2023-02-13 10:29 | P.PNPSI_ITS ---
Subjective Subjective Date of Service: 02/13/23 Reason For Visit: major depressive disorder Interim History: Met with patient; discussed with team; reviewed progress notes Patient reports that she is feeling better. Says mood is improved and denies any SI at all. She said she is sleeping better now, eating well. She says there is still a lot of anxiety, partially due to homelessness. She overall feels ready for discharge and hopes to get into respite. Does not want any medication adjustments. Mental Status Exam Mental Status Exam Narrative: Mood is okay Patient Appearance: Fatigued Patient Orientation: Person, Place, Time and Situation Level of Consciousness: Alert Patient Behavior: Appropriate, Talkative, Cooperative and Good Eye Contact Mood Description: Calm ( ok ) Affect Description: Appropriate Patient Cognition Impaired: No Ability to Follow Directions: Fair Speech Pattern: Clear and Spontaneous Speech Memory Description: Intact Hallucinations: None Delusions: Not Present Perceptual Disturbances: Depersonalization and Derealization Thought Process: Goal Oriented Thought Content: positive for Intact (Denies any SI/HI) and positive for Circumstantial Judgement: Fair Diagnostics Vital Signs (24Hr): Vital Signs - 24 hr 02/12/23 16:59 02/13/23 09:02 Temperature 97 F 98.4 F Pulse Rate 76 60 Respiratory Rate 16 Blood Pressure 97/57 L 105/56 L Pulse Oximetry 98 99 Oxygen Delivery Method Room Air Room Air BMI result Body Mass Index 28.2 Labs 02/10/23 07:53 Labs: Laboratory Results - last 48 hr 02/10/23 13:26 FSH 9.2 Medications Medications Current Medications Acetaminophen (Acetaminophen 325 Mg Tablet) 650 mg PO Q6H PRN PRN Reason: Headache/Pain Mild Scale (1-3) Last Admin: 02/13/23 01:17 Dose: 650 mg Al Hydroxide/Mg Hydroxide (Magnesium Hydrox/Alum Hydrox 30 Ml Oral.Susp) 30 ml PO Q6H PRN PRN Reason: Heartburn/Nausea Albuterol Sulfate (Albuterol Sulfate 90 Mcg 8 Gm Inhaler) 2 puff INHALE 6XD PRN PRN Reason: Wheezing Diazepam (Diazepam 5 Mg Tablet) 10 mg PO QID PRN PRN Reason: Anxiety Last Admin: 02/13/23 10:17 Dose: 10 mg Docusate Sodium (Docusate Sodium 100 Mg Capsule) 100 mg PO BID PRN PRN Reason: Constipation Famotidine (Famotidine 20 Mg Tablet) 20 mg PO BID PRN PRN Reason: Gastric Reflux Magnesium Hydroxide (Milk Of Magnesia 30 Ml Oral.Susp) 30 ml PO DAILY PRN PRN Reason: Constipation Mirtazapine (Mirtazapine 7.5 Mg Tablet) 3.75 mg PO BEDTIME [facility] Last Admin: 02/12/23 19:59 Dose: 3.75 mg Morphine Sulfate (Morphine Sulfate Er 30 Mg Tablet.Er) 30 mg PO Q12H [facility] Last Admin: 02/13/23 09:07 Dose: 30 mg Omeprazole (Omeprazole 20 Mg Capsule.Dr) 20 mg PO BID [facility] Last Admin: 02/13/23 09:07 Dose: 20 mg Oxycodone HCl (Oxycodone Hcl Immed Release 5 Mg Tablet) 5 mg PO Q8H PRN PRN Reason: back pain Last Admin: 02/13/23 01:18 Dose: 5 mg Senna (Sennosides 8.6 Mg Tablet) 8.6 mg PO DAILY PRN PRN Reason: Constipation Tiotropium [place] (Tiotropium [place] 2.5 Mcg Inhaler) 2 puff INHALE DAILY [facility] Last Admin: 02/13/23 09:07 Dose: 2 puff Allergies Allergies Allergy/AdvReac Type Severity Reaction Status Date / Time chlorpromazine Allergy Intermediate Unknown Verified 02/09/23 00:48 [From Thorazine] citalopram Allergy Intermediate Vomiting Verified 02/09/23 00:48 escitalopram [From Lexapro] Allergy Intermediate Unknown Verified 02/09/23 00:48 fluoxetine [From Prozac] Allergy Intermediate Nausea Verified 02/09/23 00:48 ibuprofen Allergy Intermediate jaw edema Unverified 02/10/23 11:33 lurasidone [From Latuda] Allergy Intermediate Swelling Verified 02/09/23 00:48 olanzapine Allergy Intermediate Unknown Verified 02/09/23 00:48 hydroxyzine [From Vistaril] Allergy Unknown Unknown Verified 02/09/23 00:48 sertraline [From Zoloft] Allergy Unknown Vomiting Verified 02/09/23 00:48 propranolol AdvReac Intermediate Anxiety Verified 02/09/23 00:48 duloxetine [From Cymbalta] AdvReac Unknown Unknown Verified 02/10/23 12:38 Assessment & Plan Assessment & Plan (1) PTSD (post-traumatic stress disorder): Status: Acute Code(s): F43.10 - Post-traumatic stress disorder, unspecified Assessment and Plan: 02/11/23- Decrease Remeron to 3.75 mg HS. 02/12/23- Discharge planned for 02/14. Pt without interest in treatment. (2) Bipolar depression: Status: Acute Code(s): F31.9 - Bipolar disorder, unspecified Plan 42 yo female, hx of bipolar disorder, PTSD, currently homeless, feeling suicidal as partner is incarcerated and both are unable to connect and find housing. Pt is disconnected from family of origin. Reports over 100 hospitalizaitons for psychiatry thus far. Hospital Course 02/13 patient reports improved mood, no SI; feeling stable; declines any medication management PLAN: Continue current treatment plan -Chronic lower back pain Patient with scoliosis, states she has been experiencing lower back pain since earlier this summer after living in the back of a [employer] Has been prescribed Vicodin, morphine by PCP which she has not yet receiving on the unit Can continue patient's home opioids for pain management -Mild intermittent asthma Well-controlled with current regimen Patient not in acute exacerbation Continue home inhalers -GERD Continue PPI Patient educated on: diagnosis and medication risk/benefits Informed Consent: understands Reason for continued inpatient stay Substantial Risk for: stable for discharge Time Spent With Patient Time: Total time managing care of this patient today ____ minutes.
[2023-02-13 18:00] VITALS: BP 105/55; PULSE 73; TEMP 35.7
[2023-02-13] MEDS: Mirtazapine 7.5 MG TABLET 3.75 MG PO (20:27)
[2023-02-14] MEDS: diazePAM 5 MG TABLET 10 MG PO ×2 (03:29→10:29)
[2023-02-14] MEDS: Omeprazole 20 MG CAPSULE.DR PO (09:15)
[2023-02-14] MEDS: Morphine Sulfate ER 30 MG TABLET.ER PO (09:15)
--- NOTE | 2023-02-14 16:44 | PM.PSYDC ---
DS: Providers Provider Date of Service: 02/14/23 Date of admission: 02/08/23 23:19 Date of discharge: 02/14/23 Primary care physician: Unknown Physician Admitting clinician: Adelita Pool Attending physician on admission: Tyrell Soria Consults: 02/09/23 00:48 Consult to Hospitalist Routine Comment: Consulting Provider: Hospitalist Reason For Exam: direct admission Attending physician on discharge: Tyrell Soria Discharging clinician: Adelita Pool DS: Diagnosis Discharge Diagnosis (1) PTSD (post-traumatic stress disorder): Status: Acute (2) Bipolar depression: Status: Acute DS: Medications Discharge Medications Home Medications: Home Medications Medication Instructions Recorded Confirmed hydrocodone 7.5 mg-acetaminophen 1 tab PO BID PRN Pain 02/09/23 02/09/23 325 mg tablet morphine 30 mg tablet,extended 30 mg PO Q12H 02/09/23 02/09/23 release Previous Rx's Medication Instructions Recorded albuterol sulfate 90 mcg/actuation 2 puff inhalation 6XD PRN Wheezing 02/14/23 aerosol inhaler #1 inhaler diazepam 10 mg tablet 10 mg PO QID PRN Anxiety #14 tabs 02/14/23 docusate sodium 100 mg capsule 100 mg PO BID PRN Constipation #60 02/14/23 caps famotidine 20 mg tablet 20 mg PO BID PRN Gastric Reflux 02/14/23 #60 tabs mirtazapine 7.5 mg tablet 3.75 mg (1/2 x 7.5 mg) PO BEDTIME 02/14/23 #15 tabs omeprazole 20 mg tablet,delayed 20 mg PO BID #60 tabs 02/14/23 release sennosides 8.6 mg tablet (senna) 8.6 mg PO DAILY PRN Constipation 02/14/23 #30 tabs umeclidinium 62.5 mcg/actuation 1 inh inhalation DAILY #1 inhaler 02/14/23 blister powder for inhalation (Incruse Ellipta) Mental Status Exam Mental Status Exam Patient Appearance: Fatigued Patient Orientation: Person, Place, Time and Situation Level of Consciousness: Alert Patient Behavior: Talkative, Cooperative and Good Eye Contact Mood Description: Suspicious and Depressed Affect Description: Depressed and Flat Patient Cognition Impaired: No Ability to Follow Directions: Fair Speech Pattern: Spontaneous Speech Memory Description: Intact Hallucinations: None Delusions: Not Present Perceptual Disturbances: Depersonalization and Derealization Thought Process: Rumination Thought Content: positive for Circumstantial, positive for Perseveration and positive for Suicidal Ideation (denies) Depressive Symptoms: Sleeping More Than Usual, Feelings of Worthlessness, Hopelessness, Isolating-Friends/Family, Unhappiness, Thoughts of /Suicide (denies) and Low Self Esteem Judgement: Fair Data Data Completed and Pending Completed studies during hospitalization [Text1]: 02/10/23 02/10/23 07:53 13:26 Sodium 142 Potassium 4.1 Chloride 108 Carbon Dioxide 27 Anion Gap 11 L BUN 10 Creatinine 0.83 Estim Creat Clear Calc 82.5 Estimated GFR > 60 Fasting Glucose 93 Estimat Average Glucose 97 Hemoglobin A1c % 5.0 Calcium 9.8 Iron 39 TIBC 234 % Saturation 17 Unsat Iron Binding 195 Total Bilirubin 0.3 AST 13 ALT 12 Alkaline Phosphatase 55 Total Protein 6.9 Albumin 3.8 Triglycerides 126 Cholesterol 134 LDL Cholesterol, Calc 77 HDL Cholesterol 32 L Vitamin B12 508 Folate 6.5 TSH 1.20 Free Estradiol Pending Total Estradiol Pending FSH 9.2 DS: Summary Hospital Course Hospital Course: Admission to adult psychiatry for exacerbation of symptoms of PTSD, bipolar depression with SI in the context of homelessness, loss of partner due to incarceration. Pt reports over 100 admissions and refusal of services, including [facility] Case Managment services in [place]. Medications were evaluated and adjusted. Pt refused resource allocation and was discharged to care home services. SI had resolved and she was safe to return to the community. Status at Discharge Functional status at discharge: independent ambulation Overall status at discharge: patient is back to baseline Time Spent with Patient Time attestation: Total time managing care of this patient today ____ minutes. Time spent: Greater than 30 minutes Discharge Plan Discharge Anticipated Discharge Date/Time: 02/14/23 11:30 Patient Disposition: Jail Discharge Diagnosis: PTSD Bipolar Disorder, Depressed Referrals: [facility]: [facility] [Other] - 1 Week ([facility] a [facility]. They are open 26/12, you can call or walk in at any time to request an assessment to be referred to [facility]/respite or to ask for help with obtaining additional services. ) [facility] [Other] - 1 Week ([facility] is a [facility]. They are open 26/12, you can call or walk in at any time to request an assessment to be referred to [facility]/respite or to ask for help with obtaining additional services. ) Therapy & Psych Intake: [facility] ([facility] [employer]) [Other] - 02/15/23 10:00 am (You must attend the intake appointment in order for the psychiatric prescriber to continue prescribing your medications. Your appointment will be with Alisia. ) Physician,Jolene J [Primary Care Provider] - 1 Week (referred to [facility] [address] [facility] ) Discharge Medications: New mirtazapine 7.5 mg Tablet 3.75 mg PO BEDTIME Qty: 15 0RF Continued morphine 30 mg Tablet Extended Release 30 mg PO Q12H hydrocodone-acetaminophen 7.5-325 mg Tablet 1 tab PO BID PRN (Reason: Pain) sennosides [senna] 8.6 mg Tablet 8.6 mg PO DAILY PRN (Reason: Constipation) Qty: 30 0RF famotidine 20 mg Tablet 20 mg PO BID PRN (Reason: Gastric Reflux) Qty: 60 0RF docusate sodium 100 mg Capsule 100 mg PO BID PRN (Reason: Constipation) Qty: 60 0RF diazepam 10 mg Tablet 10 mg PO QID PRN (Reason: Anxiety) Qty: 14 0RF albuterol sulfate 90 mcg/actuation Hfa Aerosol Inhaler 2 puff INHALATION 6XD PRN (Reason: Wheezing) Qty: 1 0RF omeprazole 20 mg Tablet,Delayed Release (Dr/Ec) 20 mg PO BID Qty: 60 0RF Incruse Ellipta 62.5 mcg/actuation Blister With Device 1 inh INHALATION DAILY Qty: 1 0RF Discharge Orders: Discharge Order (Routine); Ordered 02/14/23 Ordered By: Adelita oPol Diet: Advance to usual diet Activity on Discharge: As tolerated Stand Alone Forms: Patient Portal Discharge page, Community Support Care Plan Goals: Mood and Behavioral Stabilization Health Concerns: Mood and Behavioral Stabilization Plan of Treatment: Attend scheduled appointments Take medications as directed Assessment: Pt interviewed prior to discharge and found to be fully oriented and without SI/HI. Pt has insight and demonstrates good judgment in terms of wanting to continue with OP treatment. Pt is not in imminent risk of harm to self or others and has a safety plan that includes presenting to the closest ER or calling 911 if feeling unsafe. Pt has been observed closely by nursing and unit staff throughout admission Pt has not engaged in any behaviors that suggest dangerousness to self or others and has demonstrated appropriate behaviors and impulse control. Discharge Date/Time: 02/14/23 11:35
[2023-02-19 00:09] LABS: Estradiol Free 0.21 pg/mL; Estradiol, Ultrasensitive 11 pg/mL
== END 2023-02-14 11:35 | disposition home or self-care (01) | DRG 885 ==
PROVIDERS: Psychiatry & Neurology Psychiatry; Admitting Provider Psychiatry & Neurology Psychiatry; Visit Provider Clinical Nurse Specialist Psychiatric/Mental Health, Adult
DX: F31.9 Bipolar disorder, unspecified (principal); J45.20 Mild intermittent asthma, uncomplicated; K21.9 Gastro-esophageal reflux disease without esophagitis; M54.59 Other low back pain; G89.29 Other chronic pain; F43.10 Post-traumatic stress disorder, unspecified; Z59.00 Homelessness unspecified; Z79.899 Other long term (current) drug therapy
CPT/HCPCS: 36415; 80053; 80061; 82607; 82670; 82681; 82746; 83001; 83036; 83540; 84443; 93005

== ENCOUNTER → 2023-02-08 23:19 | Outpatient (BNV) | payer OTHER, SELFPAY | PROVIDERS: Admitting Provider Psychiatry & Neurology Psychiatry; Visit Provider Clinical Nurse Specialist Psychiatric/Mental Health, Adult | DX: F31.4 Bipolar disorder, current episode depressed, severe, without psychotic features (principal); F43.11 Post-traumatic stress disorder, acute | CPT/HCPCS: 90792; 99231; 99232; 99239 ==

== ENCOUNTER → 2023-02-08 23:19 | Outpatient (BNV) | payer OTHER, SELFPAY | PROVIDERS: Admitting Provider Psychiatry & Neurology Psychiatry; Visit Provider Student in an Organized Health Care Education/Training Program | DX: Z02.2 Encounter for examination for admission to residential institution (principal) | CPT/HCPCS: 99429 ==